=== PATIENT | female | born 1975 | race Caucasian/White ===

== ENCOUNTER 2019-07-22 19:13 | Emergency (ER) | payer SELFPAY ==
[2019-07-22] MEDS ORDERED: 0.9 % SODIUM CHLORIDE 1000ML 1,000 ML IV SCH (19:30)
[2019-07-22 19:33] LABS: URINE APPEARANCE CLEAR; URINE BILIRUBIN NEGATIVE (NEGATIVE); URINE BLOOD NEGATIVE (NEGATIVE); URINE COLOR YELLOW; URINE GLUCOSE (UA) NEGATIVE (NEGATIVE); URINE KETONE NEGATIVE (NEGATIVE); URINE LEUKOCYTE ESTERASE NEGATIVE (NEGATIVE); URINE NITRITE NEGATIVE (NEGATIVE); URINE PROTEIN NEGATIVE (NEGATIVE); URINE UROBILINOGEN 0.2 E.U./dL (0.20 - 1.00)
--- NOTE | 2019-07-22 19:35 | Emergency Department Record ---
History of Present Illness - General Chief Complaint: Abdominal Pain Stated Complaint: LOWER ABD LJPAIN Time Seen by Provider: 07/22/19 19:29 Source: Patient Mode of Arrival: Ambulatory Limitations: No limitations - History of Present Illness Initial Comments: 43 yo female presents to ED for evaluation of pelvic pain symptoms that began approximately 1 hours ago, sudden-onset while at work. Patient reports that she had used the restroom, was walking back to her desk when her symptoms began. Patient denies urinary symptoms, fevers, chills, nausea, or vomiting symptoms. Patient reports that she is sexually active, uses IUD. Patient also reports colon resection 1 year ago for "colon polyps". MD Complaint: Abdominal pain Onset/Timin -: Hour(s) Location: Suprapubic Radiation: None Migration to: No migration Severity: Moderate Quality: Aching Consistency: Constant Improves With: Nothing Worsens With: Movement Associated Symptoms: Denies other symptoms - Related Data Patient : No Previous Rx's Medication Instructions Recorded Metronidazole [Flagyl] 500 mg PO BID #13 tablet 07/22/19 Polyethylene Glycol 3350 [Miralax] 1 packet PO DAILY #15 packet 07/22/19 Allergies Allergy/AdvReac Type Severity Reaction Status Date / Time No Known Drug Allergies Allergy Verified 07/22/19 19:33 Review of Systems Constitutional: Denies: Chills, Fever, Malaise, Night sweats Eyes: Denies: Eye discharge, Eye pain ENT: Denies: Congestion, Ear pain, Epistaxis Respiratory: Denies: Cough, Dyspnea Cardiovascular: Denies: Chest pain, Dyspnea on exertion Endocrine: Denies: Fatigue, Heat or cold intolerance Gastrointestinal: Reports: Abdominal pain. Denies: Nausea, Vomiting Genitourinary: Denies: Incontinence, Retention Musculoskeletal: Denies: Arthralgia, Back pain Skin: Denies: Bruising, Change in color Neurological: Denies: Abnormal gait, Confusion, Headache, Seizure Psychiatric: Denies: Anxiety Hematological/Lymphatic: Denies: Anemia, Blood Clots Physical Exam - General General Appearance: Alert, Oriented x3, Cooperative, Mild distress Limitations: No limitations - Head Head exam: Atraumatic, Normocephalic, Normal inspection Head exam detail: negative: Abrasion, Contusion, Vences's sign, General tenderness, Hematoma, Laceration - Eye Eye exam: Normal appearance. negative: Conjunctival injection, Periorbital swelling, Periorbital tenderness, Scleral icterus - ENT Ear exam: negative: Auricular hematoma, Auricular trauma Nasal Exam: negative: Active bleeding, Discharge, Dried blood, Foreign body Mouth exam: negative: Drooling, Laceration, Muffled voice, Tongue elevation - Neck Neck exam: Normal inspection. negative: Meningismus, Tenderness - Respiratory Respiratory exam: Normal lung sounds bilaterally. negative: Rales, Respiratory distress, Rhonchi, Stridor - Cardiovascular Cardiovascular Exam: Regular rate, Normal rhythm, Normal heart sounds - GI/Abdominal GI/Abdominal exam: Soft, Tenderness (TTP suprapubic, RLQ, LLQ on examination.). negative: Rebound, Rigid - Rectal Rectal exam: Deferred - exam: Cervical discharge (Mild), Normal external exam - Extremities Extremities exam: Normal inspection. negative: Pedal edema, Tenderness - Back Back exam: Denies: CVA tenderness (R), CVA tenderness (L) - Neurological Neurological exam: Alert, Normal gait, Oriented X3 - Psychiatric Psychiatric exam: Normal affect, Normal mood - Skin Skin exam: Normal color. negative: Abrasion Type of lesion: negative: abrasion Course Vital Signs 07/22/19 19:23 Temperature 98.1 F Pulse Rate [ 107 H Pulse Ox Probe] Respiratory 20 Rate Blood Pressure 130/91 [Left Arm] Pulse Ox 98 - Reevaluation(s) Reevaluation #1: 07/22/19 20:03 Laboratory studies were reviewed and appear grossly unremarkable for an acute process. Wet prep is pending at this time. Reevaluation #2: 07/22/19 20:23 Wet prep was reviewed: 3+ Bacteria Clue cells seen on exam Will intiate treatment with Flagyl pending CT imaging results. Reevaluation #3: 07/22/19 20:35 Patient is back from CT imaging, reports that her pain symptoms are improved. Patient was updated on all results thus far. Reevaluation #4: 07/22/19 21:24 CT Abdomen and Pelvis: Prominent stool within the colon, sigmoid region IUD Normal appendix Cholithiasis Patient was updated on all results, reports that her pain symptoms continue to be improved. History and examination favor constipation as a source of the patient's pain symptoms. Ovarian torsion is a consideration, but in the setting of no ovarian cysts and with improved pain symptoms, this seems very unlikely. Patient is in agreement following this discussion. Patient appears stable for discharge on Flagyl and Miralax with return to the ED for any worsening of her pain symptoms. Medical Decision Making - Lab Data Result diagrams: 07/22/19 19:40 07/22/19 19:40 Disposition Disposition: Discharge Clinical Impression: Pelvic pain, Bacterial vaginosis Disposition: Home, Self-Care Condition: (2) Stable Instructions: Bacterial Vaginosis (ED) Additional Instructions: Return to ED if your symptoms worsen or if you have any concerns. Flagyl and Miralax as directed. Follow-up with your family doctor in 3-5 days as directed. Prescriptions: Metronidazole [Flagyl] 500 mg PO BID #13 tablet Polyethylene Glycol 3350 [Miralax] 1 packet PO DAILY #15 packet Forms: Patient Portal Access Time of Disposition: 21:23 Quality - Quality Measures Quality Measures: N/A - Blood Pressure Screening Does Patient Have Any of the Following: No Blood Pressure Classification: Pre-Hypertensive BP Reading Systolic Measurement: 122 Diastolic Measurement: 80 Screening for High Blood Pressure: < Pre-Hypertensive BP, F/U Documented > [G8950] Pre-Hypertensive Follow-up Interventions: Referral to alternative/primary care provider.
[2019-07-22] MEDS: KETOROLAC 30 MG/ML VIAL IVP ONE ×2 (19:44)
[2019-07-22 19:50] LABS: ABSOLUTE NEUTROPHIL COUNT 8.29; BASO % 0.3 % (0-6); EOS % 1.1 % (0-6); GRAN % 76.4 % (47-80); HEMATOCRIT 41.3 % (35.0-47.0); HEMOGLOBIN 13.4 gm/dl (11.6-16.0); LYMPH % 15.7 % (16-45); MEAN CELL VOLUME 88.2 fl (81-97); MEAN CORPUSCULAR HEMOGLOBIN 28.6 pg (27-33); MEAN CORPUSCULAR HGB CONC 32.4 g/dl (32-36); MEAN PLATELET VOLUME 8.8 fl (7.4-10.4); MONO % 6.5 % (0-9); PLATELET COUNT 274 K/uL (130-400); RED BLOOD COUNT 4.68 M/uL (3.80-5.40); RED CELL DISTRIBUTION WIDTH 12.9 % (11.5-14.5); WHITE BLOOD COUNT W/O DIFF 10.9 K/uL (4.2-12.2)
[2019-07-22 19:59] LABS: BLOOD UREA NITROGEN 9 mg/dL (6-20); CREATININE 0.8 mg/dL (0.5-0.9); EST GLOMERULAR FILTRATION RATE > 60 mL/min
[2019-07-22 20:00] LABS: TOTAL PROTEIN 7.3 g/dL (6.6-8.7)
[2019-07-22 20:02] LABS: GLUCOSE,RANDOM 121 mg/dL (74-109)
[2019-07-22 20:04] LABS: ALB/GLOB RATIO 1.7 (1.1-1.8); ALBUMIN 4.6 g/dL (4.0-5.0); ALKALINE PHOSPHATASE 62 U/L (35-104); ALT/SGPT 12 U/L (<33); AST/SGOT 12 U/L (10.0-35.0)
--- NOTE | 2019-07-22 20:58 | CT SCAN REPORT ---
EXAMINATION: CT Abdomen and Pelvis with IV Contrast EXAM DATE: 07/22/2019 8:46 PM TECHNIQUE: CT imaging of the abdomen and pelvis was performed with intravenous contrast. Coronal and sagittal images were reconstructed. IV Contrast: The amount and type of contrast are recorded in the medical record. INDICATION: pelvic pain COMPARISON: None ENCOUNTER: Not applicable CT ABDOMEN AND PELVIS FINDINGS: Lung Bases: Included extent of the lung bases are clear. Hepatobiliary: The liver has a normal size with a smooth surface. The hepatic and portal veins appear patent. Cholelithiasis noted. No bile duct dilatation. Pancreas: The pancreas is normal. Spleen: The spleen is not enlarged. Adrenals: The adrenal glands are normal. Kidneys, Ureters, & Bladder: Both kidneys have a normal size and there is no hydronephrosis. Both ur eters have a normal caliber and the urinary bladder is unremarkable. Gastrointestinal: The stomach and small bowel are normal with no obstruction or inflammation. The colleen endix is normal. Prominent stool within the colon. This is most significant at the level of the anas tomotic suture in the sigmoid colon stable measures 6 cm in diameter. Reproductive Organs: Intrauterine device noted Lymphatic System: There is no adenopathy within the abdomen or pelvis. Vasculature: Normal caliber abdominal aorta. Peritoneum: No free fluid, free air, or inflammation Abdominal Wall & Musculoskeletal: No suspicious bone lesions. IMPRESSION: 1. Prominent stool within the colon. This is most prominent in the sigmoid colon at the level of the anastomotic suture where the stool measures 6 cm in diameter. 2. Intrauterine device. 3. Normal appendix. 4. Cholelithiasis. No bile duct dilatation Dictated by: RAMSES FERMIN MD on 07/22/2019 8:52 PM. .
[2019-07-22] MEDS ORDERED: METRONIDAZOLE 250 MG TABLET PO ONE (21:23)
== END 2019-07-22 21:38 | disposition home or self-care (01) ==
LOC: ER 19:13
DX: R10.2 Pelvic and perineal pain (principal); N76.0 Acute vaginitis
CPT/HCPCS: 74177; 80053; 81003; 81025; 85025; 87210; 96374; 99284; J1885; J7030